=== PATIENT | male | born 1980 | race Asian ===

== ENCOUNTER 2016-10-16 19:31 | Emergency (ER) | payer BC ==
[~2016-10-16] VITALS: Ht 170.2 cm; Wt 90.7 kg
[2016-10-16] MEDS ORDERED: Bacitracin Oint UD TOPIC ONE (20:00)
[2016-10-16] MEDS ORDERED: TdaP Vaccine 0.5ml Syr IM ONE (20:00)
[2016-10-16] MEDS ORDERED: Lidocaine 1% MPF 10mg/ml 5ml IM ONE ×2 (20:00→20:30)
[2016-10-16] MEDS ORDERED: BACITRACIN1 APPLIC TOPIC (20:58)
[2016-10-16] MEDS ORDERED: IBUPROFEN600 MG ORAL (20:58)
[2016-10-16 21:09] VITALS: BP 132/87
[2016-10-16 21:10] VITALS: BP 132/87
--- NOTE | 2016-10-16 21:43 | Emergency Room Report ---
History of Present Illness General Chief Complaint: Laceration Source: Patient Present Illness HPI The patient is a 36-year-old male presenting with a laceration to the left index finger which occurred today. Patient states that he was using a knife and it slipped. The patient noticed immediate bleeding and pain to the area. Pain described as a 5/10 dull ache and does not radiate. Pain worse with touch. Patient denies any numbness or tingling. Patient denies any radiating pain. Patient denies prior injury to the area. Patient unsure of last tetanus shot. Patient denies any other symptoms Allergies: Coded Allergies: No Known Allergies (Unverified , 10/16/16) Patient History Past Medical History: see triage record Pertinent Family History: none Reviewed Nursing Documentation: PMH: Agreed, PSxH: Agreed Nursing Documentation-PM Past Medical History: No Stated History Review of Systems All Other Systems: negative except mentioned in HPI Physical Exam Vital Signs Date Time Temp Pulse Resp B/P Pulse Ox O2 Delivery O2 Flow Rate FiO2 10/16/16 19:36 98.4 89 18 129/89 100 Room Air Sp02 EP Interpretation: reviewed, normal General Appearance: no apparent distress, alert, GCS 15, non-toxic Head: normocephalic, atraumatic Eyes: bilateral eye PERRL, bilateral eye normal inspection Musculoskeletal: normal range of motion, tender - over L distal index finger Neurologic: alert, oriented x3, responsive, motor strength/tone normal, sensory intact, speech normal Psychiatric: judgement/insight normal, memory normal, mood/affect normal, no suicidal/homicidal ideation Skin: warm/dry, well hydrated, laceration - There is a 2 cm laceration to the left index finger distal to the DIP joint on the palmar surface Lymphatic: no adenopathy Procedures Laceration/Wound Repair Laceration/Wound Repair : Consent: Verbal Wound Location: upper extremity Wound's Depth, Shape: superficial Wound Length (cm): 2 Wound Explored: clean Irrigated w/ Saline (ccs): 100 Betadine Prep?: Yes Anesthesia: 1% Lidocaine - digital block Volume Anesthetic (ccs): 6 Wound Debrided: minimal Wound Repaired With: sutures Suture Size/Type: 4:0, proline Number of Sutures: 5 Layer Closure?: No Sterile Dressing Applied?: Yes Splint Applied?: No Sling Applied?: No Patient Tolerated: Well Complications: None Medical Decision Making PA Attestation Dr. Moran is my supervising physician. Patient management was discussed with my supervising physician Diagnostic Impression: Primary Impression: Finger laceration ER Course The patient is a 36-year-old male presenting with a laceration to the left index finger which occurred today. Ddx considered include but not limited to fracture, tendon/ligament injury, avulsion, nerve damage PE: vitals WNL. NAD. There is a 2 cm laceration to the left index finger distal to the DIP joint on the palmar surface. Minimal bleeding. Sensation intact light-touch. Full active range of motion. The patient is given a tetanus shot The wound was irrigated with normal saline and cleaned with betadine. A 27g needle was used to administer 6 mL of lidocaine without epi for digital block. 5 sutures were placed with 4-0 Prolene. The wound was well approximated and the patient tolerated the procedure well. The wound was then cleaned and bacitracin was applied. The patient is discharged home with a prescription for bacitracin Motrin. Laceration instructions provided. ER precautions given Last Vital Signs Date Time Temp Pulse Resp B/P Pulse Ox O2 Delivery O2 Flow Rate FiO2 10/16/16 21:10 98.4 73 18 132/87 100 Room Air Status: improved Disposition: HOME, SELF-CARE Condition: Improved Scripts Ibuprofen* (MOTRIN*) 600 Mg Tablet 600 MG ORAL Q8H Y for For Pain, #30 TAB 0 Refills Prov: ALINA DELUNA P.A. 10/16/16 Bacitracin (Bacitracin Zinc) 15 Gm Oint...g. 1 APPLIC TOPIC TID, #15 GM Prov: ALINA DELUNA 10/16/16 Patient Instructions: Laceration Care, Adult Additional Instructions: I discussed my findings with the patient. All questions and concerns have been answered. Treatment and medication compliance have been addressed. I advised the patient that they need to follow up with PMD in 7 days for wound check and suture removal. If you are unable to see PMD, return to the ED in 7 days. Return to ED if pain remains or worsens, you notice discharge from the wound, the wound continues to bleed, the suture/s fall out, you notice a fever or chills, or for any reason. Patient is advised to keep the wound clean and apply an antibacterial ointment. Patient verbalized understanding of discharge instructions. ALINA DELUNA Oct 16, 2016 21:43
== END 2016-10-16 21:11 | disposition home or self-care (01) ==
LOC: EMR 19:55
DX: S61.211A Laceration without foreign body of left index finger without damage to nail, initial encounter (principal); W26.0XXA Contact with knife, initial encounter; Y93.9 Activity, unspecified; Y92.9 Unspecified place or not applicable; Z23 Encounter for immunization
CPT/HCPCS: 90471; 90715